=== PATIENT | female | born 1955 | race Two or more races ===

== ENCOUNTER 2018-06-01 14:27 | Inpatient (IN) | payer MEDICARE, OTHER ==
[~2018-06-01] VITALS: Ht 149.9 cm; Wt 63.2 kg
[2018-06-01] MEDS ORDERED: RIVA20TA PO (15:00)
[2018-06-01] MEDS ORDERED: LEVO25TA9 PO (15:04)
[2018-06-01] MEDS ORDERED: GABA-531 PO (15:04)
[2018-06-01] MEDS ORDERED: BISA1KIT RC (15:04)
[2018-06-01] MEDS ORDERED: OS500 PO (15:04)
[2018-06-01] MEDS ORDERED: ZINC220 PO (15:04)
[2018-06-01] MEDS ORDERED: ATOR10TA84 PO (15:04)
[2018-06-01] MEDS ORDERED: AMIO200T44 PO (15:04)
[2018-06-01] MEDS ORDERED: LEVE250T55 PO (15:06)
[2018-06-01] MEDS ORDERED: SODIUM CHLORIDE 0.9% 2,000 ML IV ONE (15:15)
[2018-06-01] MEDS ORDERED: CefTRIAXone 1 GM/DEXTROSE 50 ML IV ONE (15:15)
[2018-06-01] MEDS ORDERED: BISA10S PR (15:15)
[2018-06-01 15:50] LABS: BASOPHILS % (AUTO) 0.5 % (0.0-2.0); EOSINOPHILS % (AUTO) 0.9 % (1.0-6.0); HEMATOCRIT 33.5 % (36-46); LYMPHOCYTES # (AUTO) 0.6 K/uL (1.0-4.8); LYMPHOCYTES % (AUTO) 6.2 % (22.0-44.0); MEAN CORPUSCULAR HEMOGLOBIN 29.9 pg (26.0-34.0); MEAN CORPUSCULAR HGB CONC 32.7 G/dL (31.0-37.0); MEAN CORPUSCULAR VOLUME 91 fL (80-100); MONOCYTES # (AUTO) 0.6 K/uL (0.1-1.0); MONOCYTES % (AUTO) 6.5 % (2.0-9.0); NEUTROPHILS # (AUTO) 8.3 K/uL (1.8-7.7); PLATELET COUNT (AUTO) 396 K/uL (150-450); RED BLOOD CELL COUNT(AUTO) 3.67 MIL/uL (4.00-5.20); RED CELL DISTRIBUTION WIDTH 16.9 % (11.5-14.5)
[2018-06-01 15:53] LABS: NEUTROPHILS % (AUTO) 85.9 % (40.0-70.0)
[2018-06-01 16:09] LABS: ANION GAP 4 mmol/L (8-16); CALCIUM, TOTAL 8.3 mg/dL (8.8-10.5); CARBON DIOXIDE 34 mmol/L (22-29); CHLORIDE 96 mmol/L (98-107); CREATININE 0.54 mg/dL (0.60-1.30); GLOMERULAR FILTR. RATE CALC > 60 mL/min (>60); GLUCOSE,RANDOM 105 mg/dL (70-110); POTASSIUM 4.3 mmol/L (3.5-5.1); SODIUM SERUM 134 mmol/L (136-145); UREA NITROGEN, BLOOD 12 mg/dL (7-18)
[2018-06-01 16:15] LABS: ALANINE AMINOTRANSFERASE 208 U/L (12-78); ALBUMIN 1.6 g/dL (3.4-5.0); ALKALINE PHOSPHATASE 260 U/L (46-116); ASPARTATE AMINOTRANSFERASE 128 U/L (15-37); BILIRUBIN,TOTAL 0.2 mg/dL (0.1-1.0); LIPASE 48 U/L (73-393)
[2018-06-01 16:34] LABS: B-TYPE NATRIURETIC PEPTIDE 18 pg/mL (0-100)
[2018-06-01] MEDS ORDERED: FUROSEMIDE 40 MG/4 ML VIAL IVP ONE (16:45)
[2018-06-01 17:02] LABS: ABG A-A DIFF O2 183.6 mmHg (10-20.0); ABG BASE EXCESS 1.5 mmol/L (-2.0-3.0); ABG CARBOXYHEMOGLOBIN 0.3 % (0.0-1.5); ABG HCO3 26.2 mmol/L (22.0-26.0); ABG METHEMOGLOBIN 0.3 % (0.0-1.5); ABG OXYGEN CONTENT 17.4 mL/dL (15.0-23.0); ABG OXYGEN SATURATION 99.6 % (95.0-98.0); ABG PCO2 34 mmHg (35-45); ABG PH 7.489 (7.35-7.450); ABG TOTAL HEMOGLOBIN 11.5 G/dL (12.0-18.0); PO2, ARTERIAL BG 495.4 mmHg (84.0-92.0); SOURCE, BLOOD GAS ARTERIAL; TEMPERATURE, FAHRENHEIT, BG 98.9 FAHREN (96.0-98.6)
[2018-06-01 17:03] LABS: O2 DEVICE,BLOOD GAS NON REBREATHER (ROOM AIR); SITE, BLOOD GAS LFT RADIAL
[2018-06-01 18:00] LABS: INFLUENZA TYPE A NEGATIVE FOR TYPE A (NEGATIVE); INFLUENZA TYPE B NEGATIVE FOR TYPE B (NEGATIVE)
[2018-06-01 18:27] LABS: APPEARANCE,URINE CLOUDY (CLEAR); BILIRUBIN,URINE NEGATIVE (NEGATIVE); GLUCOSE, URINE (UA) NEGATIVE (NEGATIVE); KETONES,URINE NEGATIVE (NEGATIVE); LEUKOCYTE ESTERASE ,URINE LARGE (NEGATIVE); NITRATE,URINE NEGATIVE (NEGATIVE); OCCULT BLOOD,URINE LARGE (NEGATIVE); PROTEIN,URINE POS 1+ (NEGATIVE); UROBILINOGEN,URINE 0.2 mg/dL (<=1.0)
[2018-06-01] MEDS ORDERED: 0.9% SODIUM CHLORIDE 10 ML SYRINGE IVP PRN (18:30)
[2018-06-01] MEDS ORDERED: ALBUTEROL SULFATE 2.5 MG/0.5 ML NEB SOLUTION NEB ONE (18:30)
[2018-06-01] MEDS ORDERED: ONDANSETRON HCL 4 MG/2 ML VIAL IVP PRN ×2 (18:30→20:00)
[2018-06-01] MEDS ORDERED: IPRATROPIUM BROMIDE 0.5 MG/2.5 ML NEB SOLUTION NEB ONE (18:30)
[2018-06-01] MEDS ORDERED: ACETAMINOPHEN 325 MG TABLET PO PRN ×2 (18:30→20:00)
[2018-06-01 19:15] LABS: BACTERIA,URINE Moderate /HPF (None Seen); SQUAMOUS EPITHELIAL CELL,UR Moderate /LPF (None Seen); WBC,URINE 26-50 /HPF (0-5)
[2018-06-01] MEDS ORDERED: ZOLPIDEM TARTRATE 5 MG TABLET PO PRN (20:00)
[2018-06-01] MEDS ORDERED: MORPHINE SULFATE 4 MG/ML SYRINGE IVP PRN (20:00)
[2018-06-01] MEDS ORDERED: MAGNESIUM HYDROXIDE SUSPENSION 30 ML UDCUP PO PRN (20:00)
[2018-06-01] MEDS ORDERED: OxyCODONE HCL/ACETAMINOPHEN 5-325 MG TABLET PO PRN (20:00)
[2018-06-01] MEDS ORDERED: BISACODYL 10 MG RECTAL RECTAL SUPPOSITORY PR PRN ×2 (20:00)
[2018-06-01] MEDS: AZITHROMYCIN 500 MG/NS 250 ML IV SCH (20:10)
[2018-06-01] MEDS: LevETIRAcetam 500 MG TABLET PO SCH (21:29)
[2018-06-01] MEDS: ATORVASTATIN CALCIUM 10 MG TABLET PO SCH (21:30)
[2018-06-01] MEDS: GABAPENTIN 300 MG CAPSULE PO SCH (21:30)
[2018-06-01] MEDS: CALCIUM OYSTER SHELL 500 MG TABLET PO SCH (21:30)
[2018-06-02] MEDS: LEVOTHYROXINE SODIUM 25 MCG TABLET PO SCH (06:30)
[2018-06-02 06:55] LABS: BASOPHILS % (AUTO) 0.9 % (0.0-2.0); EOSINOPHILS % (AUTO) 3.7 % (1.0-6.0); HEMATOCRIT 32.5 % (36-46); HEMOGLOBIN 10.8 g/dL (12.0-16.0); LYMPHOCYTES # (AUTO) 0.6 K/uL (1.0-4.8); LYMPHOCYTES % (AUTO) 9.1 % (22.0-44.0); MEAN CORPUSCULAR HEMOGLOBIN 30.4 pg (26.0-34.0); MEAN CORPUSCULAR HGB CONC 33.1 G/dL (31.0-37.0); MEAN CORPUSCULAR VOLUME 92 fL (80-100); MONOCYTES # (AUTO) 0.9 K/uL (0.1-1.0); MONOCYTES % (AUTO) 12.7 % (2.0-9.0); NEUTROPHILS # (AUTO) 5.1 K/uL (1.8-7.7); NEUTROPHILS % (AUTO) 73.6 % (40.0-70.0); PLATELET COUNT (AUTO) 369 K/uL (150-450); RED BLOOD CELL COUNT(AUTO) 3.54 MIL/uL (4.00-5.20); RED CELL DISTRIBUTION WIDTH 17.3 % (11.5-14.5)
[2018-06-02 07:06] LABS: INR 1.2 (0.9-1.1); PROTHROMBIN TIME 12.9 SEC (9.4-11.6)
[2018-06-02 07:49] LABS: ALANINE AMINOTRANSFERASE 182 U/L (12-78); ALBUMIN 1.6 g/dL (3.4-5.0); ALKALINE PHOSPHATASE 223 U/L (46-116); ANION GAP 4 mmol/L (8-16); ASPARTATE AMINOTRANSFERASE 103 U/L (15-37); BILIRUBIN,TOTAL 0.2 mg/dL (0.1-1.0); CARBON DIOXIDE 32 mmol/L (22-29); CHLORIDE 98 mmol/L (98-107); CREATININE 0.66 mg/dL (0.60-1.30); GLOMERULAR FILTR. RATE CALC > 60 mL/min (>60); GLUCOSE,RANDOM 85 mg/dL (70-110); PHOSPHORUS 3.7 mg/dL (2.5-4.9); POTASSIUM 3.8 mmol/L (3.5-5.1); SODIUM SERUM 134 mmol/L (136-145); TOTAL PROTEIN, SERUM 5.7 g/dL (6.4-8.2); UREA NITROGEN, BLOOD 12 mg/dL (7-18)
[2018-06-02 07:56] LABS: CALCIUM, TOTAL 8.3 mg/dL (8.8-10.5)
[2018-06-02 07:57] LABS: ABG A-A DIFF O2 73.1 mmHg (10-20.0); ABG BASE EXCESS 8.2 mmol/L (-2.0-3.0); ABG CARBOXYHEMOGLOBIN 0.2 % (0.0-1.5); ABG HCO3 31.2 mmol/L (22.0-26.0); ABG METHEMOGLOBIN 0.1 % (0.0-1.5); ABG OXYGEN CONTENT 15.7 mL/dL (15.0-23.0); ABG OXYHEMOGLOBIN 97.7 % (94.0-100.0); ABG PCO2 43 mmHg (35-45); ABG PH 7.481 (7.35-7.450); ABG TOTAL HEMOGLOBIN 11.3 G/dL (12.0-18.0); PO2, ARTERIAL BG 104.6 mmHg (79.0-87.0); SOURCE, BLOOD GAS ARTERIAL; TEMPERATURE, FAHRENHEIT, BG 97.9 FAHREN (96.0-98.6)
[2018-06-02 07:58] LABS: O2 DEVICE,BLOOD GAS CANNULA (ROOM AIR); SITE, BLOOD GAS LFT RADIAL
[2018-06-02 08:06] LABS: BASOPHILS % (AUTO) 0.8 % (0.0-2.0); EOSINOPHILS % (AUTO) 4.1 % (1.0-6.0); HEMATOCRIT 32.3 % (36-46); HEMOGLOBIN 10.9 g/dL (12.0-16.0); LYMPHOCYTES # (AUTO) 0.7 K/uL (1.0-4.8); LYMPHOCYTES % (AUTO) 10.7 % (22.0-44.0); MEAN CORPUSCULAR HGB CONC 33.7 G/dL (31.0-37.0); MEAN CORPUSCULAR VOLUME 92 fL (80-100); MONOCYTES # (AUTO) 0.6 K/uL (0.1-1.0); MONOCYTES % (AUTO) 9.4 % (2.0-9.0); PLATELET COUNT (AUTO) 368 K/uL (150-450); RED BLOOD CELL COUNT(AUTO) 3.52 MIL/uL (4.00-5.20)
[2018-06-02 08:13] LABS: ANION GAP 4 mmol/L (8-16); CALCIUM, TOTAL 8.3 mg/dL (8.8-10.5); CARBON DIOXIDE 34 mmol/L (22-29); CHLORIDE 97 mmol/L (98-107); CREATININE 0.69 mg/dL (0.60-1.30); GLOMERULAR FILTR. RATE CALC > 60 mL/min (>60); GLUCOSE,RANDOM 85 mg/dL (70-110); POTASSIUM 3.8 mmol/L (3.5-5.1); SODIUM SERUM 135 mmol/L (136-145); UREA NITROGEN, BLOOD 12 mg/dL (7-18)
[2018-06-02 08:18] LABS: ALANINE AMINOTRANSFERASE 181 U/L (12-78); ALBUMIN 1.6 g/dL (3.4-5.0); ALKALINE PHOSPHATASE 224 U/L (46-116); ASPARTATE AMINOTRANSFERASE 102 U/L (15-37); BILIRUBIN,TOTAL 0.3 mg/dL (0.1-1.0); TOTAL PROTEIN, SERUM 5.8 g/dL (6.4-8.2)
[2018-06-02 08:24] LABS: LACTIC ACID 1.6 mmol/L (0.4-2.0)
[2018-06-02 08:25] LABS: B-TYPE NATRIURETIC PEPTIDE 34 pg/mL (0-100)
[2018-06-02 08:44] LABS: GLUCOSE,POINT OF CARE 79 MG/DL (70-110)
[2018-06-02] MEDS: LevETIRAcetam 500 MG TABLET PO SCH ×2 (09:00→21:00)
[2018-06-02] MEDS: PANTOPRAZOLE SODIUM 40 MG/VIAL IVP SCH (09:45)
[2018-06-02] MEDS: AMIODARONE HCL 200 MG TABLET PO SCH ×2 (11:08→11:09)
[2018-06-02] MEDS: GABAPENTIN 300 MG CAPSULE PO SCH ×2 (11:09→21:00)
[2018-06-02] MEDS: ZINC SULFATE 220 MG CAPSULE PO SCH (11:09)
[2018-06-02] MEDS: CALCIUM OYSTER SHELL 500 MG TABLET PO SCH ×2 (11:09→21:00)
[2018-06-02 14:44] VITALS: BP 143/78
[2018-06-02] MEDS ORDERED: CefTRIAXone 1 GM/DEXTROSE 50 ML IV SCH (16:00)
[2018-06-02] MEDS ORDERED: SODIUM CHLORIDE 0.9% 250 ML IV ONE (16:43)
[2018-06-02] MEDS: RIVAROXABAN 20 MG TABLET PO SCH (19:58)
[2018-06-02 20:15] VITALS: BP 124/79
[2018-06-02] MEDS: AZITHROMYCIN 500 MG/NS 250 ML IV SCH (20:52)
[2018-06-02] MEDS: ATORVASTATIN CALCIUM 10 MG TABLET PO SCH (21:00)
[2018-06-02 23:36] VITALS: BP 101/59
[2018-06-02 23:45] VITALS: BP 101/59
[2018-06-03 03:42] VITALS: BP 104/58
[2018-06-03] MEDS: LEVOTHYROXINE SODIUM 25 MCG TABLET PO SCH (05:38)
[2018-06-03 07:40] LABS: ANION GAP 5 mmol/L (8-16); CALCIUM, TOTAL 8.1 mg/dL (8.8-10.5); CARBON DIOXIDE 33 mmol/L (22-29); CHLORIDE 96 mmol/L (98-107); CREATININE 0.55 mg/dL (0.60-1.30); GLOMERULAR FILTR. RATE CALC > 60 mL/min (>60); GLUCOSE,RANDOM 89 mg/dL (70-110); POTASSIUM 3.7 mmol/L (3.5-5.1); SODIUM SERUM 134 mmol/L (136-145); UREA NITROGEN, BLOOD 12 mg/dL (7-18)
[2018-06-03 08:09] VITALS: BP 159/95
[2018-06-03] MEDS: ZINC SULFATE 220 MG CAPSULE PO SCH (09:16)
[2018-06-03] MEDS: PANTOPRAZOLE SODIUM 40 MG/VIAL IVP SCH (09:16)
[2018-06-03] MEDS: LevETIRAcetam 500 MG TABLET PO SCH ×2 (09:16→20:50)
[2018-06-03] MEDS: GABAPENTIN 300 MG CAPSULE PO SCH ×2 (09:16→20:49)
[2018-06-03] MEDS: CALCIUM OYSTER SHELL 500 MG TABLET PO SCH ×2 (09:16→20:49)
[2018-06-03] MEDS ORDERED: VANCOMYCIN HCL 1.25 GM in DEXTROSE 5%-WATER 250 ML IV ONE ×2 (11:00→23:00)
[2018-06-03] MEDS ORDERED: SODIUM CHLORIDE 0.9% 0 ML IV ONE (11:02)
[2018-06-03] MEDS: CLINDAMYCIN 300 MG/D5% WATER 50 ML IV SCH ×2 (11:37→18:10)
[2018-06-03 13:30] VITALS: BP 114/49
[2018-06-03 15:20] VITALS: BP 127/57
[2018-06-03] MEDS: RIVAROXABAN 20 MG TABLET PO SCH (18:10)
[2018-06-03 20:22] VITALS: BP 103/62
[2018-06-03] MEDS: ATORVASTATIN CALCIUM 10 MG TABLET PO SCH (20:50)
[2018-06-04] VITALS (8 sets, daily range): BP systolic 101–156; BP diastolic 58–94
[2018-06-04] MEDS: CLINDAMYCIN 300 MG/D5% WATER 50 ML IV SCH ×3 (03:36→17:40)
[2018-06-04] MEDS: LEVOTHYROXINE SODIUM 25 MCG TABLET PO SCH (06:05)
[2018-06-04 06:46] LABS: BASOPHILS % (AUTO) 0.4 % (0.0-2.0); EOSINOPHILS % (AUTO) 1.3 % (1.0-6.0); HEMATOCRIT 30.4 % (36-46); HEMOGLOBIN 10.2 g/dL (12.0-16.0); LYMPHOCYTES # (AUTO) 0.5 K/uL (1.0-4.8); LYMPHOCYTES % (AUTO) 5.4 % (22.0-44.0); MEAN CORPUSCULAR HGB CONC 33.5 G/dL (31.0-37.0); MEAN CORPUSCULAR VOLUME 90 fL (80-100); MONOCYTES # (AUTO) 0.7 K/uL (0.1-1.0); MONOCYTES % (AUTO) 7.7 % (2.0-9.0); NEUTROPHILS # (AUTO) 7.9 K/uL (1.8-7.7); PLATELET COUNT (AUTO) 357 K/uL (150-450); RED CELL DISTRIBUTION WIDTH 17.1 % (11.5-14.5)
[2018-06-04 07:09] LABS: NEUTROPHILS % (AUTO) 85.2 % (40.0-70.0)
[2018-06-04 07:12] LABS: ANION GAP 2 mmol/L (8-16); CARBON DIOXIDE 35 mmol/L (22-29); CHLORIDE 95 mmol/L (98-107); GLOMERULAR FILTR. RATE CALC > 60 mL/min (>60); GLUCOSE,RANDOM 137 mg/dL (70-110); POTASSIUM 3.9 mmol/L (3.5-5.1); SODIUM SERUM 132 mmol/L (136-145); UREA NITROGEN, BLOOD 10 mg/dL (7-18)
[2018-06-04] MEDS ORDERED: VANCOMYCIN HCL 1.25 GM in DEXTROSE 5%-WATER 250 ML IV SCH (08:00)
[2018-06-04] MEDS: LevETIRAcetam 500 MG TABLET PO SCH ×2 (09:32→21:09)
[2018-06-04] MEDS: ZINC SULFATE 220 MG CAPSULE PO SCH (09:32)
[2018-06-04] MEDS: GABAPENTIN 300 MG CAPSULE PO SCH ×2 (09:33→21:09)
[2018-06-04] MEDS: PANTOPRAZOLE SODIUM 40 MG/VIAL IVP SCH (09:33)
[2018-06-04] MEDS: CALCIUM OYSTER SHELL 500 MG TABLET PO SCH ×2 (09:33→21:08)
[2018-06-04] MEDS: AMIODARONE HCL 200 MG TABLET PO SCH (09:34)
[2018-06-04] MEDS: SODIUM CHLORIDE 1 GM TABLET PO SCH ×2 (12:17→21:09)
[2018-06-04] MEDS: METOCLOPRAMIDE HCL 5 MG/ML 2 ML VIAL IVP SCH ×3 (12:18→23:38)
[2018-06-04] MEDS: RIVAROXABAN 20 MG TABLET PO SCH (17:40)
[2018-06-04 20:29] LABS: GLUCOMETER DEV NAME(LOC) 5S.2; GLUCOSE,POINT OF CARE 103 MG/DL (70-110)
[2018-06-04] MEDS ORDERED: SODIUM CHLORIDE 0.9% 250 ML IV ONE (21:00)
[2018-06-04] MEDS: VANCOMYCIN HCL 1 GM/D5% WATER 200 ML IV SCH (21:08)
[2018-06-04] MEDS: ATORVASTATIN CALCIUM 10 MG TABLET PO SCH (21:09)
[2018-06-05] MEDS: CLINDAMYCIN 300 MG/D5% WATER 50 ML IV SCH ×3 (02:49→16:53)
[2018-06-05 04:36] VITALS: BP 116/61
[2018-06-05] MEDS: LEVOTHYROXINE SODIUM 25 MCG TABLET PO SCH (05:56)
[2018-06-05 06:35] LABS: BASOPHILS % (AUTO) 0.4 % (0.0-2.0); HEMATOCRIT 29.7 % (36-46); HEMOGLOBIN 9.8 g/dL (12.0-16.0); LYMPHOCYTES # (AUTO) 0.6 K/uL (1.0-4.8); LYMPHOCYTES % (AUTO) 7.2 % (22.0-44.0); MEAN CORPUSCULAR HEMOGLOBIN 29.8 pg (26.0-34.0); MEAN CORPUSCULAR HGB CONC 33.1 G/dL (31.0-37.0); MEAN CORPUSCULAR VOLUME 90 fL (80-100); MONOCYTES # (AUTO) 0.9 K/uL (0.1-1.0); MONOCYTES % (AUTO) 11.2 % (2.0-9.0); NEUTROPHILS # (AUTO) 6.5 K/uL (1.8-7.7); NEUTROPHILS % (AUTO) 78.2 % (40.0-70.0); PLATELET COUNT (AUTO) 319 K/uL (150-450); RED CELL DISTRIBUTION WIDTH 17.1 % (11.5-14.5)
[2018-06-05 07:17] LABS: ANION GAP 2 mmol/L (8-16); CARBON DIOXIDE 35 mmol/L (22-29); CHLORIDE 98 mmol/L (98-107); CREATININE 0.76 mg/dL (0.60-1.30); GLOMERULAR FILTR. RATE CALC > 60 mL/min (>60); GLUCOSE,RANDOM 114 mg/dL (70-110); POTASSIUM 3.9 mmol/L (3.5-5.1); SODIUM SERUM 135 mmol/L (136-145); UREA NITROGEN, BLOOD 11 mg/dL (7-18); VANCOMYCIN,RANDOM 33.9 mcg/mL (25.0-50.0)
[2018-06-05 08:55] VITALS: BP 137/56
[2018-06-05] MEDS: AMIODARONE HCL 200 MG TABLET PO SCH (09:54)
[2018-06-05] MEDS: GABAPENTIN 300 MG CAPSULE PO SCH ×2 (09:54→21:45)
[2018-06-05] MEDS: LevETIRAcetam 500 MG TABLET PO SCH ×2 (09:54→21:44)
[2018-06-05] MEDS: PANTOPRAZOLE SODIUM 40 MG/VIAL IVP SCH (09:55)
[2018-06-05] MEDS: VANCOMYCIN HCL 1 GM/D5% WATER 200 ML IV SCH ×2 (09:55→21:43)
[2018-06-05] MEDS: METOCLOPRAMIDE HCL 5 MG/ML 2 ML VIAL IVP SCH ×3 (09:55→23:25)
[2018-06-05] MEDS: SODIUM CHLORIDE 1 GM TABLET PO SCH ×2 (09:55→21:45)
[2018-06-05] MEDS: ZINC SULFATE 220 MG CAPSULE PO SCH (09:56)
[2018-06-05] MEDS: CALCIUM OYSTER SHELL 500 MG TABLET PO SCH ×2 (09:56→21:46)
[2018-06-05 11:34] VITALS: BP 132/54
[2018-06-05] MEDS: RIVAROXABAN 20 MG TABLET PO SCH (16:53)
[2018-06-05 17:17] VITALS: BP 112/71
[2018-06-05 19:06] VITALS: BP 108/49
[2018-06-05] MEDS: ACETYLCYSTEINE 10% 100 MG/ML 4 ML NEB SOLUTION NEB SCH (20:39)
[2018-06-05] MEDS: ALBUTEROL SULFATE 2.5 MG/0.5 ML NEB SOLUTION NEB PRN (20:39)
[2018-06-05] MEDS: IPRATROPIUM BROMIDE 0.5 MG/2.5 ML NEB SOLUTION NEB PRN (20:39)
[2018-06-05] MEDS: ATORVASTATIN CALCIUM 10 MG TABLET PO SCH (21:44)
[2018-06-05 23:38] VITALS: BP 87/52
[2018-06-06] MEDS: CLINDAMYCIN 300 MG/D5% WATER 50 ML IV SCH ×3 (02:01→16:25)
[2018-06-06 03:50] VITALS: BP 102/48
[2018-06-06 05:45] LABS: BASOPHILS % (AUTO) 0.5 % (0.0-2.0); HEMATOCRIT 29.5 % (36-46); HEMOGLOBIN 9.6 g/dL (12.0-16.0); LYMPHOCYTES # (AUTO) 0.5 K/uL (1.0-4.8); LYMPHOCYTES % (AUTO) 5.9 % (22.0-44.0); MEAN CORPUSCULAR HEMOGLOBIN 29.7 pg (26.0-34.0); MEAN CORPUSCULAR HGB CONC 32.5 G/dL (31.0-37.0); MEAN CORPUSCULAR VOLUME 92 fL (80-100); MONOCYTES # (AUTO) 0.9 K/uL (0.1-1.0); MONOCYTES % (AUTO) 11.2 % (2.0-9.0); NEUTROPHILS # (AUTO) 6.4 K/uL (1.8-7.7); NEUTROPHILS % (AUTO) 79.4 % (40.0-70.0); PLATELET COUNT (AUTO) 320 K/uL (150-450); RED BLOOD CELL COUNT(AUTO) 3.22 MIL/uL (4.00-5.20); RED CELL DISTRIBUTION WIDTH 17.5 % (11.5-14.5)
[2018-06-06 06:11] LABS: CALCIUM, TOTAL 7.8 mg/dL (8.8-10.5); CREATININE 1.09 mg/dL (0.60-1.30); POTASSIUM 3.6 mmol/L (3.5-5.1)
[2018-06-06] MEDS: LEVOTHYROXINE SODIUM 25 MCG TABLET PO SCH (06:37)
[2018-06-06 07:13] LABS: VANCOMYCIN,RANDOM 46.8 mcg/mL (25.0-50.0)
[2018-06-06 07:14] VITALS: BP 128/79
[2018-06-06] MEDS ORDERED: VANCOMYCIN HCL 1 GM/D5% WATER 200 ML IV PRN (08:00)
[2018-06-06] MEDS: ALBUTEROL SULFATE 2.5 MG/0.5 ML NEB SOLUTION NEB PRN ×3 (08:15→20:32)
[2018-06-06] MEDS: IPRATROPIUM BROMIDE 0.5 MG/2.5 ML NEB SOLUTION NEB PRN ×3 (08:15→20:33)
[2018-06-06] MEDS: ACETYLCYSTEINE 10% 100 MG/ML 4 ML NEB SOLUTION NEB SCH ×4 (08:27→20:33)
[2018-06-06] MEDS: SODIUM CHLORIDE 1 GM TABLET PO SCH ×2 (09:01→20:19)
[2018-06-06] MEDS: METOCLOPRAMIDE HCL 5 MG/ML 2 ML VIAL IVP SCH ×3 (09:01→23:54)
[2018-06-06] MEDS: AMIODARONE HCL 200 MG TABLET PO SCH (09:01)
[2018-06-06] MEDS: PANTOPRAZOLE SODIUM 40 MG/VIAL IVP SCH (09:01)
[2018-06-06] MEDS: LevETIRAcetam 500 MG TABLET PO SCH (09:01)
[2018-06-06] MEDS: ZINC SULFATE 220 MG CAPSULE PO SCH (09:01)
[2018-06-06] MEDS: GABAPENTIN 300 MG CAPSULE PO SCH ×2 (09:01→20:17)
[2018-06-06] MEDS: CALCIUM OYSTER SHELL 500 MG TABLET PO SCH ×2 (09:02→20:19)
[2018-06-06] MEDS ORDERED: LevETIRAcetam 250 MG TABLET PO ONE (12:45)
[2018-06-06] MEDS: RIVAROXABAN 20 MG TABLET PO SCH (16:25)
[2018-06-06 17:13] VITALS: BP 97/69
[2018-06-06 19:47] VITALS: BP 86/69
[2018-06-06] MEDS: ATORVASTATIN CALCIUM 10 MG TABLET PO SCH (20:19)
[2018-06-06] MEDS: LevETIRAcetam 250 MG TABLET PO SCH (20:19)
[2018-06-06 23:25] VITALS: BP 96/52
[2018-06-07] MEDS: CLINDAMYCIN 300 MG/D5% WATER 50 ML IV SCH ×2 (02:32→09:21)
[2018-06-07 04:04] VITALS: BP 101/46
[2018-06-07 07:12] LABS: CALCIUM, TOTAL 8.1 mg/dL (8.8-10.5); CREATININE 2.03 mg/dL (0.60-1.30); POTASSIUM 4.1 mmol/L (3.5-5.1); VANCOMYCIN,RANDOM 40.1 mcg/mL (25.0-50.0)
[2018-06-07 07:17] VITALS: BP 124/78
[2018-06-07] MEDS: ACETYLCYSTEINE 10% 100 MG/ML 4 ML NEB SOLUTION NEB SCH ×2 (08:34→14:48)
[2018-06-07] MEDS: METOCLOPRAMIDE HCL 5 MG/ML 2 ML VIAL IVP SCH (09:21)
[2018-06-07] MEDS: LevETIRAcetam 250 MG TABLET PO SCH (09:21)
[2018-06-07] MEDS: PANTOPRAZOLE SODIUM 40 MG/VIAL IVP SCH (09:21)
[2018-06-07] MEDS: ZINC SULFATE 220 MG CAPSULE PO SCH (09:22)
[2018-06-07] MEDS: SODIUM CHLORIDE 1 GM TABLET PO SCH (09:22)
[2018-06-07] MEDS: AMIODARONE HCL 200 MG TABLET PO SCH (09:22)
[2018-06-07] MEDS: GABAPENTIN 300 MG CAPSULE PO SCH (09:22)
[2018-06-07] MEDS: CALCIUM OYSTER SHELL 500 MG TABLET PO SCH (09:22)
[2018-06-07 11:14] VITALS: BP 126/47
[2018-06-07] MEDS ORDERED: LEVE250T55 PO (14:39)
[2018-06-07] MEDS ORDERED: CLIN300C3 PO (14:40)
== END 2018-06-07 16:00 | disposition hospice, home (50) | DRG 177 ==
LOC: EMS 14:30 → EDBD 14:30 → 5N 06-02 13:41 → 5S 06-02 18:25
PROVIDERS: ADMIT Internal Medicine; ATTEND Internal Medicine
PROC: 5A09357 Assistance with Respiratory Ventilation, Less than 24 Consecutive Hours, Continuous Positive Airway Pressure (ICD-10-PCS; 2018-06-02)
PROC: 0D20XUZ Change Feeding Device in Upper Intestinal Tract, External Approach (ICD-10-PCS; principal; 2018-06-04)
DX: J69.0 Pneumonitis due to inhalation of food and vomit (principal); J96.01 Acute respiratory failure with hypoxia; N39.0 Urinary tract infection, site not specified; E87.1 Hypo-osmolality and hyponatremia; E44.0 Moderate protein-calorie malnutrition; Z43.1 Encounter for attention to gastrostomy; Q90.9 Down syndrome, unspecified; D64.9 Anemia, unspecified; K80.20 Calculus of gallbladder without cholecystitis without obstruction; E78.5 Hyperlipidemia, unspecified; G40.909 Epilepsy, unspecified, not intractable, without status epilepticus; K59.00 Constipation, unspecified; E03.9 Hypothyroidism, unspecified; E78.00 Pure hypercholesterolemia, unspecified; F79 Unspecified intellectual disabilities; I20.9 Angina pectoris, unspecified; I48.91 Unspecified atrial fibrillation; I50.9 Heart failure, unspecified; K74.60 Unspecified cirrhosis of liver; L89.90 Pressure ulcer of unspecified site, unspecified stage; Z51.5 Encounter for palliative care; Z66 Do not resuscitate; Z79.01 Long term (current) use of anticoagulants
CPT/HCPCS: 36600; 51702; 71250; 76700; 80074; 82805; 83605; 83735; 84100; 84145; 87040; 87070; 87081; 87086; 87205; 87804; 93005; 93306; 94640; 94660; 94799; 96365; 96375; 99291; C9113; G0378; J0456; J0696; J1250; J1940; J2765; J3370; J3490; J7030; J7050; J7060